=== PATIENT | female | born 1990 | race Caucasian/White ===

== ENCOUNTER 2016-10-12 19:18 | Inpatient (IN) ==
[2016-10-12] MEDS ORDERED: TYLENOL PO ONE (19:28)
[2016-10-12] MEDS ORDERED: TYLENOL ONE (19:29)
--- NOTE | 2016-10-12 20:22 | PROVIDER DOCUMENTATION ---
HPI-General Adult - General Chief Complaint: Flu Symptoms Stated Complaint: FEVER/CHEST PAIN/CONGESTION Time Seen by Provider: 10/12/16 20:19 Source: patient Allergies/Adverse Reactions: Patient Allergies Allergy/AdvReac Type Severity Reaction Status Date / Time carbamazepine [From Tegretol] Allergy HIVES Verified 10/04/15 01:36 Home Medications: Home Medication List Medication Instructions Recorded Confirmed Last Taken Type Levetiracetam [Keppra] 1,000 mg PO BID #60 tablet 01/12/16 Unknown Rx - History of Present Illness -Gen Adult Nature of Presenting Problems: 26 Y/O F presents to ED with Flu like symptoms. Pt states that she was sick for about a week and was at her aunt house the entire week while sick. Pt states that she's a smoker and hasn't smoked within a week. States ran out of anxiety meds and seizure med while at aunts house. Twitching, and states coughing with pressure in chest, States D/N. States hasn't ate in a week. Location of Pain/Injury: reports: generalized Pain Radiation: reports: no radiation Quality of Pain: reports: pressure, other (tingling) Severity: reports: moderate, severe Onset/Duration: reports: last week Timing: reports: still present Context/Activities at Onset: reports: none Associated Symptoms: reports: cough, diarrhea, loss of appetite, nausea. denies : fatigue, fever/chills, headaches, vomiting Similar Symptoms Previously?: No Recently seen or treated by another doctor?: No Review of Systems - Adult - REVIEW OF SYSTEMS - ADULT Constitutional: reports: fever. denies: chills Eyes: reports: no symptoms reported Ears, Nose, Mouth & Throat: reports: no symptoms reported Cardiovascular: denies: chest pain Respiratory: reports: cough, shortness of breath Gastrointestinal: reports: abdominal pain, diarrhea, poor appetite. denies: vomiting Genitourinary: reports: no symptoms reported Musculoskeletal: reports: no symptoms reported Integumentary: reports: no symptoms reported Neurological: reports: no symptoms reported Psychiatric: reports: anxiety Endocrine: reports: no symptoms reported Hematologic/Lymphatic: reports: no symptoms reported Allergic/Immunologic: reports: no symptoms reported All Other Systems: Reviewed and Negative Past History - Adult - PAST MEDICAL HISTORY-ADULT Review of Records: reports: Old Records Reviewed, Nursing Assessment Review, Medications Reviewed, Social history reviewed & non-contributory. Major Childhood Illnesses: reports: denies history Cardiovascular: reports: denies history Respiratory: reports: denies history Gastrointestinal: reports: denies history Obstetrical/Gynecological: reports: denies history Genitourinary: reports: denies history Musculoskeletal: reports: denies history Neurological: reports: denies history Psychiatric: reports: depression Endocrine/Immune: reports: denies history Other Conditions: reports: denies history - PRIOR SURGERIES/PROCEDURES Surgical/Procedure History: reports: other (laproscopic) - IMMUNIZATION STATUS Childhood Immunizations: See Nurse Assessment Flu Vaccine: See Nurse Assessment - FAMILY HISTORY Family History: reviewed, not pertinent - SOCIAL HISTORY Smoking: cigarettes Substance Use: none/never Physical Exam-General - PHYSICAL EXAM-ADULT Initial Vital Signs Reviewed: Yes - CONSTITUTIONAL General Appearance: alert, no apparent distress. negative: appears well - EYES Eyes: PERRL/EOMI, pink conjunctivae, fundi clear, no AV nicking - HEAD, EARS, NOSE, MOUTH & THROAT HENMT: normocephalic/atraumatic, moist mucous membranes, normal ENT inspection, TMs normal, pharynx normal - NECK Neck: non-tender, full range of motion, supple, normal inspection - RESPIRATORY Respiratory: chest non-tender, normal breath sounds, rhonchi - CARDIOVASCULAR Cardiovascular: normal peripheral pulses, regular rate, rhythm - GASTROINTESTINAL (ABDOMEN) Abdominal Exam: normal bowel sounds, tenderness - LYMPHATIC Lymphatic: no adenopathy - MUSCULOSKELETAL Back Exam: normal inspection, no CVA tenderness, no vertebral tenderness Extremity: normal range of motion, non-tender, normal gait - SKIN Integumentary: normal turgor - 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 - PSYCHIATRIC Psych/Mental Status: normal thought content, normal thought process, oriented x 3, anxious Progress - PLAN OF CARE/RESULTS Progress/Plan/Lab Results: Laboratory Tests 10/12/16 10/12/16 10/12/16 19:30 20:33 20:33 WBC 9.83 RBC 4.73 Hgb 12.9 Hct 37.4 MCV 79.1 L MCH 27.3 MCHC 34.5 RDW Std Deviation 13.6 Plt Count 387 MPV 10.0 Immature Gran % (Auto) 1.4 H Neut % (Auto) 77.4 H Lymph % (Auto) 10.4 L Bracken % (Auto) 10.4 H Eos % (Auto) 0.3 Baso % (Auto) 0.1 Immature Gran # (Auto) 0.14 H Neut # (Auto) 7.61 H Lymph # (Auto) 1.02 L Bracken # (Auto) 1.02 H Eos # (Auto) 0.03 Baso # (Auto) 0.01 Sodium 126 L Potassium 2.8 L Chloride 86 L Carbon Dioxide 25 Anion Gap 15 BUN 5 L Creatinine 0.5 Estimated GFR/1.73 m2 > 60 BUN/Creatinine Ratio 10 Glucose 118 H Calculated Osmolality 252 Calcium 8.7 L Total Bilirubin 0.70 AST 24 ALT 14 Alkaline Phosphatase 60 Total Protein 7.2 Albumin 2.8 L Globulin 4.0 Albumin/Globulin Ratio 1.0 Influenza A (Rapid) NEGATIVE Influenza B (Rapid) NEGATIVE Orders Category Date Time Status Admit - [facility] Routine AdmDCTranf 10/12/16 22:03 Ordered Activity - Up Ad Kathia ORDERED Care 10/12/16 22:07 Active Elevate Head of Bed DIRECTED Care 10/12/16 22:07 Active Encourage Fluids DIRECTED Care 10/12/16 22:07 Active Intake and Output-Strict Q 8-HR ASSESS Care 10/12/16 22:07 Active Nursing- Assist w/ IS as order ORDERED Care 10/12/16 22:08 Active Vital Signs Order Q 8-HR ASSESS Care 10/12/16 22:07 Active Heart Healthy Diet Diet 10/12/16 22:08 Active CHEST-2 VIEWS [RAD] Stat Exams 10/12/16 20:23 Taken BLOOD CULTURE [BLDCUL] Stat Lab 10/12/16 21:22 Ordered CBC WITH DIFF [HEME] Stat Lab 10/12/16 20:33 Completed CMP [COMPREHENSIVE METABOLIC PANEL] [CHEM] Stat Lab 10/12/16 20:33 Completed Flu [INFLUENZA SCREEN PL] Stat Lab 10/12/16 19:30 Completed 0.9% Sodium Chloride Inj [Ns] 1,000 ml Med 10/12/16 22:15 Active IV 150 mls/hr Acetaminophen [Tylenol] Med 10/12/16 19:29 Discontinued 1,000 mg .ROUTE .STK-MED ONE Acetaminophen [Tylenol] Med 10/12/16 19:28 Discontinued 1,000 mg PO NOW ONE CefTRIAXONE 1 GM/NS [Rocephin 1 gm/Ns] 50 ml Med 10/12/16 21:24 Discontinued IV STAT Doxycycline 100 mg Med 10/12/16 22:15 Active 0.9% Sodium Chloride Inj [Ns] 250 ml IV Q12H Levetiracetam [Keppra] Med 10/12/16 22:01 Discontinued 1,000 mg .ROUTE .STK-MED ONE Levetiracetam [Keppra] Med 10/13/16 09:00 Active 1,000 mg PO BID Levetiracetam [Keppra] Med 10/12/16 21:22 Discontinued 1,000 mg PO NOW ONE Quetiapine [Seroquel] Med 10/12/16 21:23 Discontinued 200 mg PO NOW ONE Aerosol Treatments RTQ6H.NV Ot 10/13/16 10:00 Active Aerosol Treatments RTQ6H.NV Ot 10/13/16 16:00 Active Aerosol Treatments RTQ6H.NV Ot 10/13/16 22:00 Active Incentive Spirometer Routine Ot 10/12/16 22:07 Active Oxygen Device Routine Ot 10/12/16 22:07 Active Pulse Oximetry Routine Oth 10/12/16 22:07 Active Telemetry [OM.EQ] Routine Oth 10/12/16 22:03 Active Transfer/Admit Order [TRANSFER] Routine Transfer 10/12/16 22:10 Ordered Vital Signs - 24 hr 10/12/16 10/12/16 10/12/16 19:24 21:18 22:06 Temperature 101 F H 97.9 F 98.9 F Pulse Rate 110 H 74 78 Respiratory 22 18 18 Rate Blood Pressure 108/71 123/78 O2 Sat by Pulse 97 91 L 93 L Oximetry - XRAY 1 XRAY Study: Chest Impression: Abnormal XRAY Interpretation: pneumonia - CONSULTS/PCP/HOSPITALIST Notification #1 *Consult/PCP/Hospitalist*: Time Discussed: 22:20 Reason/Comments: Admittance Consult Disposition: Admit (Admit Accepted) Departure - Departure Time of Disposition Order: 22:21 DIAGNOSIS: Anxiety Pneumonia involving right lung Qualifiers: Pneumonia type: due to unspecified organism Lung location: middle lobe of lung Qualified Code(s): J18.1 - Lobar pneumonia, unspecified organism Disposition: ADMITTED INPATIENT 09 Certified Medical Emergency: Emergent Condition: Stable Additional Instructions: ED Follow Up Instructions: You have been treated by a care provider in the Emergency Department. These instructions are being provided to you so you can have an understanding of how to care for yourself upon discharge. Upon discharge from the Emergency Department, you are responsible for making arrangements for follow-up care by a physician of your choice. Take all prescribed medications as directed. Return to the Emergency Department immediately for any new or worsening symptoms. You may call the Physician Referral phone number at [phone] to obtain a list of Physicians who are taking new patients. Referrals: None,PCP [Primary Care Provider] - Attestation - Scribe Verification/Attestation Scribe:: Virginia Molina Acting as Scribe for:: Radhames Dover Scribe documention review:: This chart was documented by a scribe and accurately reflects the service the provider performed and the decisions made by the provider.
[2016-10-12 20:50] LABS: MANUAL DIFF NEEDED? NO
[2016-10-12 20:55] LABS: BASO% 0.1 % (0.0-0.8); EOS# 0.03 X1000 (0.0-0.7); EOS% 0.3 % (0.0-10.0); HEMATOCRIT 37.4 % (37.0-47.0); HEMOGLOBIN 12.9 g/dL (12.0-16.0); IMM GRAN# 0.14 X1000 (0.0-0.04); IMM GRAN% 1.4 % (0.0-0.5); LYMPH# 1.02 X1000 (1.2-3.4); LYMPH% 10.4 % (20.5-51.1); MCH 27.3 PG (27-31); MCHC 34.5 g/dL (33-37); MCV 79.1 FL (81-99); MONO# 1.02 X1000 (0.11-0.59); MONO% 10.4 % (1.7-9.3); NEUT% 77.4 % (42.2-75.2); PLT 387 X1000 (130-400); RBC 4.73 XMIL (4.2-5.4)
[2016-10-12] MEDS ORDERED: KEPPRA PO ONE (21:22)
[2016-10-12] MEDS ORDERED: SEROQUEL PO ONE (21:23)
[2016-10-12 21:24] LABS: AGAP 15; ALBUMIN 2.8 g/dL (3.5-5.0); ALKALINE PHOSPHATASE 60 U/L (32-104); BUN 5 mg/dL (8-22); CALCIUM 8.7 mg/dL (8.8-10.2); CHLORIDE 86 mmol/L (98-107); COSMO 252; GOT 24 U/L (10-30); GPT 14 U/L (10-36); POTASSIUM 2.8 mmol/L (3.5-5.1); SODIUM 126 mmol/L (136-145); TCO2 25 mmol/L (25-35); TOTAL PROTEIN 7.2 g/dL (6.3-8.3)
[2016-10-12] MEDS ORDERED: ROCEPHIN 1 GM/NS 50 ML IV STA (21:24)
[2016-10-12] MEDS ORDERED: KEPPRA ONE (22:01)
[2016-10-12] MEDS ORDERED: NS 1,000 ML IV SCH (22:15)
[2016-10-12] MEDS ORDERED: DOXYCYCLINE ONE (23:06)
[2016-10-12] MEDS ORDERED: NS 250 ML ONE (23:06)
[2016-10-12] MEDS: DOXYCYCLINE 100 MG in NS 250 ML IV SCH (23:16)
[2016-10-13] MEDS ORDERED: DUONEB (A & A) INH PRN (00:08)
[2016-10-13] MEDS ORDERED: KLONOPIN PO ONE (00:21)
[2016-10-13] MEDS ORDERED: NS 1,000 ML IV ONE (00:23)
[2016-10-13] MEDS ORDERED: NICODERM PATCH TD PRN (00:25)
[2016-10-13] MEDS ORDERED: NS + KCL 40 MEQ 1,000 ML IV SCH (00:30)
[2016-10-13] MEDS: DUONEB (A & A) INH SCH ×5 (04:03→19:45)
--- NOTE | 2016-10-13 05:52 | HISTORY AND PHYSICAL ---
CHIEF COMPLAINT: Shortness of breath. HISTORY OF PRESENT ILLNESS: A 26-year-old female with no significant history except for tobacco abuse. She has had flu-like symptoms for about 7 days. She just has not felt well. She smokes but she has not smoked or eaten very well for the last 1-2 days. She also is out of her anxiety and seizure medications. She came up with coughing issues. The patient was admitted because she has a large right lower lobe pneumonia and is fairly symptomatic. PAST MEDICAL HISTORY: Seizure disorder, possible bipolar disorder. No asthma or COPD. PAST SURGICAL HISTORY: She has had an oophorectomy laparoscopic for a cyst. SOCIAL HISTORY: She is a pack-a-day smoker. She has done that for about 10 years. She denies alcohol. She denies any drugs of abuse. ALLERGIES: Carbamazepine. FAMILY HISTORY: Reviewed noncontributory. MEDICATIONS: She reportedly is on Keppra and Seroquel. In any case, patient came in for evaluation. Workup in the ER revealed a right lower lobe pneumonia, and she was admitted for treatment. REVIEW OF SYSTEMS: Otherwise negative. PHYSICAL EXAMINATION: VITAL SIGNS: Blood pressure is 114/50, heart rate of 84, respiratory rate 18, temperature 99.3 degrees, 93% on room air nasal cannula. She was 91 on room air. She came in with a temperature of a 101 degrees. GENERAL: A well-developed female. She appears in mild distress. Just very tremulous. Just ill appearing overall. HEENT: Pupils equal, round, reactive to light. Extraocular movements were intact. She has tacky oral mucosa, just very dry. NECK: Supple. CARDIOVASCULAR: Regular rate. She had an abnormal S2 sound and PULMONARY: She had just a lot of rhonchi on pulmonary exam with no wheezing, but just diffuse rhonchi, some rales at the bases. GI: Soft, nontender, nondistended. Bowel sounds were positive. EXTREMITIES: No clubbing or cyanosis. LYMPHATICS: No peripheral edema. NEUROLOGICAL: Nonfocal. DIAGNOSTIC DATA: No white count. Chemistries show sodium is 126. Her potassium is 2.8. The rest of her studies are unremarkable. Her chest x-ray again showed a large right lower lobe infiltrate with air bronchograms consistent with pneumonia. ASSESSMENT: This is a 26-year-old female presenting with shortness of breath, cough and a right lower lobe pneumonia. She is ill appearing with positive systemic inflammatory response syndrome criteria, so I feel she has some early degree of sepsis. 1. Right lower lobe pneumonia. Sepsis. We will continue empiric antibiotics. She has been placed on doxycycline and Rocephin. So, we will continue those medications. She has a significant pneumonia. I am going to go ahead and progress with a CT scan to better evaluate her. She may even indeed need a pulmonary evaluation if she is not improved. We will continue pulmonary toilet with incentive spirometry, acapella, Mucomyst, Mucinex, and follow clinically. 2. Hypokalemia. We will supplement and follow magnesium levels. 3. Hyponatremia, likely related to possible medications versus dehydration. We will check urine electrolytes and monitor her kidney function. May be related to her psychiatric medications. I am going to screen her for any drugs of abuse. She is fairly young to have such an overwhelming amount of pneumonia, unless there is some surreptitious drug use. 4. Tobacco abuse. Counseled on cessation. Will given a NicoDerm patch and follow. DISPOSITION: Pending her clinical course. This is a service admission.
[2016-10-13] MEDS: LOVENOX SUBQ SCH (05:55)
[2016-10-13] MEDS: NORCO-7.5 PO PRN ×3 (05:57→17:47)
[2016-10-13] MEDS ORDERED: PNEUMOVAX 23 IM ONE (06:24)
[2016-10-13 06:55] LABS: HEMATOCRIT 33.7 % (37.0-47.0); HEMOGLOBIN 11.5 g/dL (12.0-16.0); MCH 27.5 PG (27-31); MCHC 34.1 g/dL (33-37); MCV 80.6 FL (81-99); MPV 10.9 FL (7.4-10.4); RBC 4.18 XMIL (4.2-5.4)
[2016-10-13 07:01] LABS: UR AMPHETAMINES QUAL NONE DETECTED (NONE DETECT); UR BARBITUATES QUAL NONE DETECTED (NONE DETECT); UR BENZODIAZEPIN QUAL NONE DETECTED (NONE DETECT); UR CANNABINOIDS QUAL PRESUMPTIVE POSITIVE (NONE DETECT); UR COCAINE QUAL NONE DETECTED (NONE DETECT); UR MDMA QUAL NONE DETECTED (NONE DETECT); UR METHADONE QUAL NONE DETECTED (NONE DETECT); UR METHAMPHETAMINE QUAL NONE DETECTED (NONE DETECT); UR OPIATES QUAL PRESUMPTIVE POSITIVE (NONE DETECT); UR OXYCODONE QUAL NONE DETECTED (NONE DETECT); UR PCP QUAL NONE DETECTED (NONE DETECT); UR TCA QUAL NONE DETECTED (NONE DETECT)
[2016-10-13 07:16] LABS: AGAP 11; BUN 7 mg/dL (8-22); CALCIUM 8.1 mg/dL (8.8-10.2); CHLORIDE 97 mmol/L (98-107); COSMO 269; POTASSIUM 2.6 mmol/L (3.5-5.1); SODIUM 135 mmol/L (136-145); TCO2 26 mmol/L (25-35)
[2016-10-13] MEDS ORDERED: MUCOMYST 20% INH SCH (07:30)
[2016-10-13] MEDS ORDERED: KLOR-CON PO ONE (08:11)
--- NOTE | 2016-10-13 08:11 | Diag Imaging Result Document ---
PROCEDURE NAME: CHEST-2 VIEWS - 10/12/2016 FRONTAL AND LATERAL CHEST, TWO VIEWS: FINDINGS: There is a dense right lower lobe infiltrate. There is likely involvement of the right middle lobe as well. Questionable small infiltrate in the left lower lobe behind the heart. The upper lungs are clear. The heart is not enlarged. The vessels are not distended. IMPRESSION: Right sided pneumonia.
[2016-10-13] MEDS: NS 1,000 ML IV SCH ×2 (08:47→22:51)
[2016-10-13] MEDS: POTASSIUM CHLORIDE 20 MEQ/SWI 100 ML IV SCH ×2 (08:56→13:37)
[2016-10-13] MEDS: KLONOPIN PO PRN ×2 (08:57→17:48)
[2016-10-13] MEDS: KEPPRA PO SCH ×2 (08:58→21:01)
[2016-10-13] MEDS: MUCINEX PO SCH ×2 (08:58→21:01)
--- NOTE | 2016-10-13 09:33 | PROGRESS NOTE ---
DATE: 10/13/2016 SUBJECTIVE: Patient states she is feeling a little bit better. She is still having significant cough and congestion. Denies any true chest pains or palpitations. PHYSICAL EXAMINATION: Vital Signs: Temperature current is 98.6, T-max was 101 degrees yesterday afternoon. Pulse of 70, respiratory rate of 20, BP 1264/62. Saturating 94% on room air. General: The patient is well developed female who currently is in mild respiratory distress. She is awake, alert, and oriented. Neck: Supple. CV: Regular rate. Chest: Relatively clear with rhonchi throughout. No apparent wheezing. Abdomen: Soft. Extremities: Moves all extremities. Neurologic: No changes. Skin: Warm and dry. No rashes. ASSESSMENT: 1. Hypokalemia. Potassium 2.6. We will replace intravenously. 2. Hypocalcemia. We will replace orally. 3. Right lower lobe pneumonia. 4. Systemic inflammatory response syndrome. 5. Hyponatremia, resolved. 6. Chronic tobacco abuse. Again, discussed with the patient the perils of smoking. 7. Abnormal urine drug screen. Patient has a urine drug screen positive for opiates and cannabinoids. This certainly could have increased the likelihood of her having an aspiration type pneumonia. PLAN: She currently is on Rocephin and doxycycline. We will check a CT scan. We will continue to follow. Hopefully home in 1-2 days.
--- NOTE | 2016-10-13 11:01 | Diag Imaging Result Document ---
PROCEDURE NAME: CT THORAX W/CONTRAST - 10/13/2016 CT CHEST WITH INTRAVENOUS CONTRAST, 10/13/2016: A CT dose reduction protocol was used. COMPARISON: CT chest 10/12/2016. FINDINGS: There is dense consolidation of the majority of the right lower lobe. This contains numerous small air cavities containing air-fluid levels, measuring up to about 3.3 cm. These are compatible with small intrapulmonary abscesses. These are mostly in the retro hilar space, at the level of the right main pulmonary artery and pulmonary veins. There is some trace infiltrate in the right middle lobe. There is also an area of consolidation in the retrocardiac left lower lobe. There is only minimal infiltrate in the left upper lobe. There are some reactive appearing, enlarged right hilar and mediastinal lymph nodes. Spleen size is top normal. Heart and great vessels are normal. Bony structures are intact. IMPRESSION: Multilobar bilateral pneumonia. The right lower lobe consolidation is the most extensive, and appears to contain numerous small intrapulmonary abscesses. [facility]
[2016-10-13] MEDS: DOXYCYCLINE 100 MG in NS 250 ML IV SCH (13:02)
[2016-10-13] MEDS ORDERED: TYLENOL PO PRN (13:06)
[2016-10-13] MEDS ORDERED: NS 250 ML ONE (13:22)
[2016-10-13] MEDS ORDERED: VANCOMYCIN IV PER PHARMACY MISC SCH (14:00)
[2016-10-13] MEDS ORDERED: ZOSYN 3.375 GM/NS 50 ML IV SCH (14:00)
[2016-10-13] MEDS ORDERED: VANCOMYCIN 2,200 MG in NS 500 ML IV ONE (15:00)
[2016-10-13] MEDS: ZOSYN 4.5 GM/NS 100 ML IV SCH ×2 (16:50→21:03)
[2016-10-13] MEDS ORDERED: ZOFRAN IV PRN (16:55)
[2016-10-13] MEDS: MUCOMYST 20% INH SCH (19:46)
[2016-10-13] MEDS ORDERED: ROCEPHIN 1 GM/NS 50 ML IV SCH (21:00)
[2016-10-13] MEDS ORDERED: SEROQUEL PO ONE (21:27)
[2016-10-14] MEDS: KLONOPIN PO PRN ×4 (00:36→20:27)
[2016-10-14] MEDS: NORCO-7.5 PO PRN ×4 (00:36→20:27)
[2016-10-14] MEDS: DUONEB (A & A) INH SCH ×7 (03:45→23:42)
[2016-10-14] MEDS: ZOSYN 4.5 GM/NS 100 ML IV SCH ×4 (04:03→20:28)
[2016-10-14] MEDS: VANCOMYCIN 1,650 MG in NS 250 ML IV SCH ×2 (04:46→14:36)
[2016-10-14 05:37] LABS: HEMATOCRIT 30.5 % (37.0-47.0); HEMOGLOBIN 10.2 g/dL (12.0-16.0); MCH 27.2 PG (27-31); MCHC 33.4 g/dL (33-37); MCV 81.3 FL (81-99); MPV 10.4 FL (7.4-10.4); RBC 3.75 XMIL (4.2-5.4)
[2016-10-14] MEDS: LOVENOX SUBQ SCH (05:52)
[2016-10-14 05:59] LABS: AGAP 12; ALBUMIN 1.9 g/dL (3.5-5.0); ALKALINE PHOSPHATASE 54 U/L (32-104); BUN 4 mg/dL (8-22); CALCIUM 7.3 mg/dL (8.8-10.2); CHLORIDE 103 mmol/L (98-107); COSMO 268; GOT 17 U/L (10-30); GPT 13 U/L (10-36); POTASSIUM 3.3 mmol/L (3.5-5.1); SODIUM 136 mmol/L (136-145); TCO2 21 mmol/L (25-35); TOTAL PROTEIN 5.2 g/dL (6.3-8.3)
[2016-10-14] MEDS: MUCOMYST 20% INH SCH ×2 (08:00→20:07)
[2016-10-14] MEDS ORDERED: KLOR-CON PO ONE (08:02)
[2016-10-14] MEDS: KEPPRA PO SCH ×2 (08:05→20:26)
[2016-10-14] MEDS: NS 1,000 ML IV SCH (08:05)
[2016-10-14] MEDS: MUCINEX PO SCH ×2 (08:05→20:26)
--- NOTE | 2016-10-14 08:31 | PROGRESS NOTE ---
DATE: 10/14/2016 SUBJECTIVE: Patient is still having significant cough. Denies any true fevers yesterday. However, she did have a T-max of 102.8 degrees this morning. Denies any chest pain or palpitations. PHYSICAL EXAMINATION: Vital Signs: Temperature current 98.6, T-max 102.8 degrees at 6:30 this a.m., pulse 86, respiratory rate 20, BP 129/69, saturation 100% on room air. General: The patient is a well-developed female who unfortunately has a significant fever this morning. She continues to have a cough. She denies any production to the cough. States she has not been out of bed. She is still having some shortness of breath but overall feeling better. Patient denies any chest pains or palpitations currently. Abdomen: Soft, nondistended. Extremities: Moves all extremities. Neurologic: No changes. ASSESSMENT: 1. Multilobar pneumonia with more extensive consolidation of the right lower lobe, with most likely small intrapulmonary abscesses. 2. Hypokalemia. Potassium is continuing to improve. We will continue to replace orally. 3. Hyponatremia, resolved. 4. Chronic tobacco abuse. 5. Chronic drug usage. PLAN: We will continue the patient in the hospital on IV antibiotics. Certainly can stop her telemetry at this point. Echocardiogram is currently pending. She certainly may need a RUBINA as well, given her known history of IV drug use and her current significant pneumonia. Multiple labs are still pending including HIV, hepatitis, Legionella. We will continue to follow. Continue her on vancomycin and Zosyn. We will decrease her IV fluids down to saline lock and follow.
[2016-10-14] MEDS ORDERED: FLUZONE QUAD 2016-2017 SYRINGE IM ONE (09:00)
[2016-10-14 10:27] LABS: HIV ANTIBODY SCREEN SEE COMMENTS (())
[2016-10-14 13:00] LABS: HEPATITIS PROFILE ACUTE SEE COMMENTS (())
--- NOTE | 2016-10-14 20:05 | ECHO REPORT ---
ORDER DATE: 10/14/2016 INTERPRETING PHYSICIAN: Dr. Rebollar CLINICAL INDICATIONS: Shortness of breath, pneumonia, 26-year-old female. M-MODE MEASUREMENTS: Right ventricle: 2.7 cm. Left ventricle end diastole: 4.2 cm. Left ventricle end systole: 2.8 cm. Posterior wall: 0.7 cm. Interventricular septum: 0.7 cm. Left atrium: 3.2 cm. Aortic root: 2.9 cm. SUMMARY OF 2-DIMENSIONAL IMAGING: Left ventricular function appears to be normal. Ejection fraction estimated at 66%. The right ventricle appears to be at the upper limits of normal to borderline enlarged. Inferior vena cava is not dilated. The tricuspid valve shows mild degree of regurgitation. The pulmonary pressure is estimated at 32 mmHg. Pulmonic valve looks normal. Color flow mapping unremarkable. Mitral valve looks normal. Color flow mapping unremarkable. The aortic valve looks normal. Color flow mapping also unremarkable. There is no evidence of any stenosis or regurgitation. The pulse wave Doppler of mitral inflow is normal. Tissue Doppler of septal and lateral mitral anulus averages 15 cm. There is no diastolic dysfunction. Pulmonic valve looks grossly normal. There is no pericardial effusion, masses, or thrombus. The pulse wave Doppler of pulmonary venous flow is also normal. The interatrial septum is bowing from the left atrium into the right atrium. I do not see evidence of shunt. SUMMARY: This study shows: 1. Normal left ventricular systolic function. 2. No diastolic dysfunction. 3. No evidence of any significant valvular abnormality. 4. Pulmonary systolic pressure estimated at 32 mmHg. 5. Interatrial septum bowing into the right atrium. That may be a normal variant. No evidence of shunt was noted. 6. Clinical correlation recommended.
[2016-10-14] MEDS ORDERED: SEROQUEL PO ONE (21:53)
[2016-10-15] MEDS: ZOSYN 4.5 GM/NS 100 ML IV SCH ×4 (03:02→22:52)
[2016-10-15] MEDS: VANCOMYCIN 1,650 MG in NS 250 ML IV SCH ×2 (04:00→16:14)
[2016-10-15] MEDS: DUONEB (A & A) INH SCH ×6 (04:56→22:59)
[2016-10-15] MEDS: NORCO-7.5 PO PRN ×4 (05:09→22:50)
[2016-10-15] MEDS: KLONOPIN PO PRN ×4 (05:09→22:51)
[2016-10-15] MEDS: LOVENOX SUBQ SCH (05:14)
[2016-10-15] MEDS: MUCOMYST 20% INH SCH ×2 (07:46→20:20)
--- NOTE | 2016-10-15 08:22 | PROGRESS NOTE ---
DATE: 10/15/2016 SUBJECTIVE: Patient without any new complaints this morning. States that she is starting to get out of bed. Denies any chest pain or palpitations. Denies any GI or issues. OBJECTIVE: Vital Signs: Reviewed. Temperature 98 degrees, pulse 86, respiratory rate 18, BP 124/67. General: Patient is a well developed, well nourished female who currently is in no respiratory distress. She is awake, alert. Neck: Supple. CV: Regular rate. Chest: Relatively clear. ASSESSMENT: 1. Pneumonia. Sputum culture still pending. CT on the demonstrated multilobar pneumonia with questionable intrapulmonary abscesses. We will consult Dr. Leal with infectious disease for opinion on antibiotic choice. 2. Hepatitis C. This is a new result. Discussed this with Ms. Aguero and the fact that she will need to follow up outpatient with gastroenterology to discuss possible treatment options. However, her medical and drug noncompliance certainly could decrease her ability to be treated. Patient understands. 3. Bipolar. Continue Keppra and Seroquel. 4. Intentional medical noncompliance. 5. Intentional drug use and abuse. 6. Hypokalemia, continues to improve. 7. Hypocalcemia. We will recheck. 8. Moderate protein calorie malnutrition. We will continue to encourage oral. We will recheck labs in the morning. 9. Chronic tobacco abuse. Again, discussed with patient the perils of smoking.
[2016-10-15] MEDS: NS 1,000 ML IV SCH (08:23)
[2016-10-15] MEDS: MUCINEX PO SCH ×2 (08:23→22:51)
[2016-10-15] MEDS: KEPPRA PO SCH ×2 (08:23→22:50)
[2016-10-15] MEDS ORDERED: VANCOMYCIN 1,800 MG in NS 250 ML IV SCH (18:02)
[2016-10-15] MEDS: SEROQUEL PO SCH (22:50)
[2016-10-16] MEDS: ZOSYN 4.5 GM/NS 100 ML IV SCH ×3 (03:22→15:35)
[2016-10-16] MEDS: DUONEB (A & A) INH SCH ×5 (04:21→19:47)
[2016-10-16] MEDS: NORCO-7.5 PO PRN ×4 (04:54→23:13)
[2016-10-16] MEDS: KLONOPIN PO PRN ×4 (04:55→23:13)
[2016-10-16] MEDS: VANCOMYCIN 1,800 MG in NS 250 ML IV SCH ×2 (04:55→17:20)
[2016-10-16] MEDS: LOVENOX SUBQ SCH (05:01)
[2016-10-16 06:25] LABS: HEMATOCRIT 29.7 % (37.0-47.0); HEMOGLOBIN 9.8 g/dL (12.0-16.0); MCH 27.2 PG (27-31); MCV 82.5 FL (81-99); MPV 10.1 FL (7.4-10.4); RBC 3.6 XMIL (4.2-5.4)
[2016-10-16 06:38] LABS: AGAP 13; ALKALINE PHOSPHATASE 50 U/L (32-104); BUN 7 mg/dL (8-22); CALCIUM 7.9 mg/dL (8.8-10.2); CHLORIDE 104 mmol/L (98-107); COSMO 275; GOT 14 U/L (10-30); GPT 10 U/L (10-36); MAGNESIUM 1.9 mg/dL (1.5-2.7); POTASSIUM 3.4 mmol/L (3.5-5.1); SODIUM 139 mmol/L (136-145); TCO2 22 mmol/L (25-35); TOTAL PROTEIN 5.6 g/dL (6.3-8.3)
[2016-10-16] MEDS: MUCOMYST 20% INH SCH ×2 (07:40→19:47)
[2016-10-16] MEDS: MUCINEX PO SCH ×2 (09:34→20:52)
[2016-10-16] MEDS: KEPPRA PO SCH ×2 (09:34→20:52)
--- NOTE | 2016-10-16 09:54 | PROGRESS NOTE ---
DATE: 10/16/2016 SUBJECTIVE: Patient without any new complaints today. OBJECTIVE: Vital Signs: Temperature 97 degrees, pulse 60, respiratory 20, BP 135/85. General: Patient is a well-developed female who currently is in no respiratory distress. She is awake, alert. Neck: Supple. CV: Regular rate. Chest: Relatively clear. Abdomen: Soft. LABS: Sputum culture shows methicillin-resistant staphylococcus, sensitive to tetracycline, Bactrim and clindamycin. ASSESSMENT: 1. Anemia of chronic disease, stable. 2. Hypokalemia, stable. 3. Methicillin-resistant Staphylococcus aureus in sputum. 4. Moderate protein calorie malnutrition. 5. Chronic drug abuse. 6. Right lower lobe pneumonia secondary to methicillin-resistant staphylococcus. 7. Sepsis, resolved. PLAN: We will add vancomycin given her recent sputum results. We will ask Dr. Leal with Infectious Disease to evaluate for length of antibiotics.
[2016-10-16] MEDS: NS 1,000 ML IV SCH (11:08)
[2016-10-16 13:10] LABS: HCV BY PCR SEE COMMENTS (()); HCV CHARGE YES
--- NOTE | 2016-10-16 20:05 | CONSULTATION ---
DATE OF CONSULTATION: 10/16/2016 CONCLUSION: The patient has methicillin-resistant Staph aureus pneumonia. Her blood cultures were negative thus she does not have bacteremia fortunately. An echocardiogram did not show vegetations and since the blood cultures are also negative I doubt she has endocarditis. The patient does have a history of IV drug abuse. She started having diarrhea in the last 2 days and I think Clostridium difficile toxin should be checked in her stool. Patient also is due to have a menstrual period. I would suggest checking a urinary test. Patient has hepatitis C. RECOMMENDATIONS: As mentioned above, I would suggest getting a urinary test. I have discontinued Zosyn and I think the patient can be treated with a single agent namely vancomycin for the patient's methicillin-resistant Staph aureus pneumonia. The patient's hepatitis C is positive and also the PCR for hepatitis C is positive. I would suggest a referral to a rug hooker I think the patient would be an excellent candidate to go to an LTAC i.e. a long-term acute care facility. As mentioned above, suggest ordering stool for C diff toxin. DISCUSSION: The patient admits to doing IV drugs. Before she came in she had a week of coughing, a yellow sputum and fever. She also was dyspneic but all of these symptoms have improved somewhat. She also was complaining of pain in her joints and muscle and again this is getting better since she has been receiving antibiotics. In the past 2 days she has had diarrhea for so I think it would be good to check a Clostridium difficile toxin. Patient's echocardiogram did not show any vegetations. Her CBC shows a white count of 5720, hemoglobin 9.8 , and platelet count 357,000. CT scan of the chest shows multilobar pneumonia. The QuantiFERON test for TB was negative. Urinary Legionella and pneumococcal test were negative. As mentioned above, the patient's sputum grew methicillin-resistant Staph aureus which in vitro was susceptible to vancomycin, clindamycin, tetracycline, Septra and gentamicin. PAST MEDICAL HISTORY/REVIEW OF SYSTEMS: Eyes and ears: She denies difficulty hearing or seeing. Neck: No stiffness. Respiratory: The patient as mentioned above did have coughing productive of yellow sputum and she did have dyspnea but all this is getting better. Cardiac: No chest pain or palpitations. GI: As mentioned above, the patient has had diarrhea in the past 2 days. She is not having nausea or vomiting. Endocrine: She does not have diabetes or thyroid disease. Hematologic: She does not have a history of anemia or bleeding tendency. Integument: She does not have rashes. The remainder the patient's review of systems was completed and was negative. 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 Her last menstrual period was approximately a month ago and she is not on any control device. PREVIOUS HOSPITALIZATION/OPERATION: She has had laparoscopic surgery to remove an ovary. MEDICAL DISEASES: Positive for seizure disorder and IV drug abuse. INFECTIOUS DISEASE HISTORY: Positive for UTI. Negative for pneumonia. FAMILY HISTORY: Positive for diabetes mellitus, hypertension, myocardial infarction and stroke. SOCIAL HISTORY: [place] She is single. She drinks alcoholic beverages. She does IV drug abuse. ALLERGIES: She is allergic to Tegretol. MEDICATIONS: At home she takes Seroquel and Keppra. She has no pets at home. PRESENT ILLNESS: The patient's creatinine is 1. The GFR is greater than 60. Liver function studies are normal. The patient's hepatitis C screen test was positive. The patient's hepatitis C antibody was positive. Patient's hepatitis C by PCR was 9829. The patient' s HIV antibody was negative. MEDICAL DISEASES: Positive for seizure disorder and IV drug abuse. INFECTIOUS DISEASE HISTORY: Positive for UTI. FAMILY HISTORY: Positive for diabetes mellitus, hypertension, myocardial infarction, and stroke. PHYSICAL EXAMINATION: Vital Signs: Temperature is 98.1 degrees, pulse 81, respirations 20, blood pressure 133/68. Patient weighs 162 pounds. General: This is an ill- appearing young female. She is in no acute distress. Head, eyes, ears, nose, and throat: No drainage noted from the nose or ears. Neck: No meningismus. Lungs: Clear to auscultation. Cardiovascular : Regular heart rate. I did not hear any murmurs. Abdomen: Soft without masses or tenderness. Neurologic: Patient is alert. She can move her extremities. There is no tremor. Her sensation is intact to touch. Her memory as regarding her medical history appeared intact. Integument : No rash is noted. Thank you for the consult. MTDD
[2016-10-16] MEDS: CULTURELLE PO SCH (20:52)
[2016-10-16] MEDS: SEROQUEL PO SCH (20:52)
[2016-10-17] MEDS: DUONEB (A & A) INH SCH ×6 (03:23→19:36)
[2016-10-17] MEDS: VANCOMYCIN 1,800 MG in NS 250 ML IV SCH (04:24)
[2016-10-17] MEDS: NORCO-7.5 PO PRN ×3 (05:24→17:43)
[2016-10-17] MEDS: KLONOPIN PO PRN ×3 (05:25→17:43)
[2016-10-17] MEDS: LOVENOX SUBQ SCH (05:25)
[2016-10-17] MEDS: MUCOMYST 20% INH SCH ×2 (07:50→19:36)
[2016-10-17] MEDS: KEPPRA PO SCH ×2 (10:32→21:53)
[2016-10-17] MEDS: MUCINEX PO SCH ×2 (10:32→21:53)
[2016-10-17] MEDS: CULTURELLE PO SCH ×2 (10:32→21:53)
--- NOTE | 2016-10-17 11:41 | PROGRESS NOTE ---
DATE: 10/17/2016 SUBJECTIVE: Patient without any new complaints. States that she is feeling okay. Denies any cough, congestion any worse than usual. OBJECTIVE: Vital Signs: On physical, temp 98, pulse 82, respiratory 18, BP 120/68, satting 96% on room air. General: Patient is well developed, well nourished. Currently in no respiratory distress. She is awake, alert. Neck: Supple. CV: Regular rate. Chest: Positive rhonchi. No wheezing. No crackles. There is good air movement bilaterally. Abdomen: Soft, nondistended. Extremities: Moves all extremities. Neurologic: No changes. Skin: Warm and dry. No rashes. LABS: No current labs today. We will recheck in the a.m. ASSESSMENT: 1. Methicillin-resistant Staphylococcus aureus in her sputum. 2. Moderate protein calorie malnutrition. 3. Hypokalemia, improving. 4. Anemia of chronic disease, stable. 5. Chronic drug abuse. This certainly presents an incredible problem as Ms Aguero needs to be on intravenous vancomycin for 4 total more weeks per infectious disease. 6. Right lower lobe pneumonia with methicillin-resistant Staphylococcus in her sputum. PLAN: Hopefully, patient will be a candidate for LTAC. Otherwise, she certainly may need to stay in the hospital for the entire 4 weeks. It is extremely problematic for Ms Aguero to be released with an IV, as she admits that she will likely use it to shoot up.
[2016-10-17] MEDS ORDERED: VANCOMYCIN 2,000 MG in NS 500 ML IV SCH (17:00)
[2016-10-17] MEDS: NS 1,000 ML IV SCH (21:53)
[2016-10-17] MEDS: VANCOMYCIN 1,600 MG in NS 250 ML IV SCH (21:53)
[2016-10-17] MEDS: SEROQUEL PO SCH (21:53)
[2016-10-18] MEDS: NORCO-7.5 PO PRN ×4 (00:53→21:41)
[2016-10-18] MEDS: KLONOPIN PO PRN ×4 (00:53→21:41)
[2016-10-18] MEDS: DUONEB (A & A) INH SCH ×6 (01:50→19:20)
[2016-10-18] MEDS: LOVENOX SUBQ SCH (06:11)
[2016-10-18 06:48] LABS: HEMATOCRIT 30.3 % (37.0-47.0); HEMOGLOBIN 9.8 g/dL (12.0-16.0); MCH 26.8 PG (27-31); MCHC 32.3 g/dL (33-37); RBC 3.65 XMIL (4.2-5.4)
[2016-10-18 07:18] LABS: AGAP 11; ALBUMIN 2.2 g/dL (3.5-5.0); ALKALINE PHOSPHATASE 55 U/L (32-104); BUN 6 mg/dL (8-22); CALCIUM 8.3 mg/dL (8.8-10.2); CHLORIDE 107 mmol/L (98-107); COSMO 278; GOT 13 U/L (10-30); GPT 8 U/L (10-36); POTASSIUM 3.4 mmol/L (3.5-5.1); SODIUM 141 mmol/L (136-145); TCO2 22 mmol/L (25-35); TOTAL PROTEIN 5.9 g/dL (6.3-8.3)
[2016-10-18] MEDS: MUCOMYST 20% INH SCH (07:48)
[2016-10-18] MEDS: CULTURELLE PO SCH ×2 (09:22→21:42)
[2016-10-18] MEDS: KEPPRA PO SCH ×2 (09:22→21:42)
[2016-10-18] MEDS: MUCINEX PO SCH ×2 (09:22→21:42)
[2016-10-18] MEDS: VANCOMYCIN 1,600 MG in NS 250 ML IV SCH ×2 (09:24→21:41)
[2016-10-18] MEDS: NS 1,000 ML IV SCH (09:24)
--- NOTE | 2016-10-18 11:28 | PROGRESS NOTE ---
DATE: 10/18/2016 SUBJECTIVE: The patient states that she is experiencing some increased anxiety. She is asking for her Klonopin dose to be increased as well as more anxiety medication added. She denies any cough or congestion. She actually states that physically, she is feeling better. OBJECTIVE: Vital Signs: Blood pressure is 135/86, heart rate of 92, respirations are 16, temperature is 97.3 degrees oral, with room air saturations of 98%. Cardiovascular: Regular rate and rhythm. S1 and S2 appreciated. Neck: Supple with trachea midline. Pulmonary: She does have rhonchi that do not clear to cough, particularly on the right side, with some scattered wheezes, with no increased work of breathing noted. Gastrointestinal: Abdomen is soft, nontender, nondistended, with bowel sounds in all 4 quadrants. Extremities: No clubbing, cyanosis, or edema. Calves are nontender. Pulses are palpable x4. Neurologic: She is alert and oriented x3. Skin: Warm and dry. Labs: WBC is 6.2, with a hemoglobin of 9.8, hematocrit 30.3, and platelets of 473,000. Sodium is 141, potassium 3.4, BUN 6, creatinine 0.8, with a glucose of 278. ASSESSMENT: 1. Methicillin-resistant Staphylococcus aureus in her sputum. 2. Moderate protein calorie malnutrition. 3. Hypokalemia, improving. 4. Anemia of chronic disease, stable. 5. Chronic drug use. 6. Right lower lobe pneumonia with methicillin-resistant Staphylococcus aureus in her sputum. 7. Hepatitis C. PLAN: We are hoping the patient will be a candidate for LTAC. We will reassess their evaluation up today. She is going to need an entire 4 weeks of IV antibiotics. This is problematic as she is an IV drug user, using heroin within 2 weeks of admission. She did state to me that if she went home within an IV, she would in fact shoot up heroin. We will continue with her current treatment. Dictated by KADEN Coombs for Royal Castillo MD
[2016-10-18] MEDS: SEROQUEL PO SCH (21:41)
[2016-10-19] MEDS: NORCO-7.5 PO PRN ×4 (04:20→23:27)
[2016-10-19] MEDS: KLONOPIN PO PRN ×4 (04:20→23:27)
[2016-10-19] MEDS: DUONEB (A & A) INH SCH ×5 (05:21→19:24)
[2016-10-19] MEDS: LOVENOX SUBQ SCH (05:48)
[2016-10-19] MEDS: NS 1,000 ML IV SCH (08:01)
[2016-10-19] MEDS: VANCOMYCIN 1,600 MG in NS 250 ML IV SCH ×2 (08:01→20:49)
--- NOTE | 2016-10-19 08:12 | PROGRESS NOTE ---
DATE: 10/19/2016 SUBJECTIVE: Patient without new complaints. She notes the increased in anxiety medicine seems to be helping better. OBJECTIVE: Vital signs: Temperature 98, pulse 74-104, respiratory 18, BP 122/60, saturating 96% on room air. General: Patient is well developed, well nourished. She is currently in no real respiratory distress. She is awake, alert. Neck: Supple. CV: Regular rate. Chest: Relatively clear. Abdomen: Soft, nondistended. Extremities: Moves all extremities. Neurologic: No focal changes. ASSESSMENT: 1. Methicillin-resistant Staphylococcus aureus pneumonia. 2. Moderate protein calorie malnutrition. 3. Chronic drug abuse. 4. Right lower lobe pneumonia. 5. Sepsis, resolved. 6. Hypokalemia, stable. 7. Moderate protein calorie malnutrition. PLAN: We will replace patient's potassium. The patient currently is day three of a 4 week vancomycin treatment. She will need vancomycin until approximately 11/17/2016. However, she is an extremely high for using her IV at home for drug use. This is per the patient's on words. We will ask social work assistant to continue to assist and help find placement, hopefully at an LTAC.
[2016-10-19] MEDS: CULTURELLE PO SCH ×2 (10:36→20:48)
[2016-10-19] MEDS: KEPPRA PO SCH ×2 (10:36→20:40)
[2016-10-19] MEDS: MUCINEX PO SCH ×2 (10:36→20:48)
[2016-10-19] MEDS: KLOR-CON PO SCH (10:38)
[2016-10-19] MEDS: SEROQUEL PO SCH (20:49)
[2016-10-20] MEDS: DUONEB (A & A) INH SCH ×6 (02:32→19:16)
[2016-10-20] MEDS: NORCO-7.5 PO PRN ×3 (06:07→18:06)
[2016-10-20] MEDS: LOVENOX SUBQ SCH (06:07)
[2016-10-20] MEDS: KLONOPIN PO PRN ×3 (06:08→18:06)
--- NOTE | 2016-10-20 08:35 | PROGRESS NOTE ---
DATE: 10/20/2016 SUBJECTIVE: Patient is without new complaints of cough and congestion. In fact, states that her breathing is actually getting better. States she has not been able to sleep well. PHYSICAL EXAMINATION: Vital Signs: Reviewed. Temperature 98 degrees, pulse 85, respiratory 18, blood pressure 135/84. General: Patient is well developed and well nourished. She is currently in no real respiratory distress. She is awake, alert. Neck: Supple. Cardiovascular: Regular rate. Chest: Relatively clear. Abdomen: Soft. Extremities: Moves all extremities. Neurologic: No changes. Skin: Warm and dry. No rashes. ASSESSMENT: 1. Methicillin-resistant Staphylococcus aureus pneumonia. 2. Sepsis, resolved. 3. Chronic drug abuse. 4. Anemia of chronic disease. 5. Bipolar. 6. Chronic anxiety. 7. Insomnia. 8. Hypokalemia. PLAN: We will recheck laboratories in the a.m. We will continue her on IV vancomycin until 11/18/2016. Unfortunately, as noted previously, patient has a significant drug use history. She admits that it would be somewhat dangerous for her to go home with an IV, as she is highly likely to use this IV for drug use. Currently, we are looking into LTAC or some type of snf situation. We will add trazodone to see if this will help her sleep. Discussed with patient that she needs to be up and moving around, and that also will help her sleep.
[2016-10-20] MEDS: NS 1,000 ML IV SCH (09:42)
[2016-10-20] MEDS: CULTURELLE PO SCH ×2 (09:44→21:17)
[2016-10-20] MEDS: MUCINEX PO SCH ×2 (09:44→21:17)
[2016-10-20] MEDS: KEPPRA PO SCH ×2 (09:44→21:17)
[2016-10-20] MEDS: KLOR-CON PO SCH (09:44)
[2016-10-20] MEDS: SEROQUEL PO SCH (21:18)
[2016-10-21] MEDS: DUONEB (A & A) INH SCH ×6 (00:28→19:56)
[2016-10-21] MEDS: NORCO-7.5 PO PRN ×3 (00:41→18:05)
[2016-10-21] MEDS: KLONOPIN PO PRN ×3 (00:41→18:06)
--- NOTE | 2016-10-21 08:25 | PROGRESS NOTE ---
DATE: 10/21/2016 SUBJECTIVE: Patient without any complaints. She is still having issues with anxiety but this is normal for her. Still having issues with insomnia. Again, this is also normal for her. OBJECTIVE: Vital Signs: Reviewed and stable. General: She is awake and alert. Neck: Supple. CV: Regular rate. Chest: Relatively clear. Occasional rhonchi. No wheezing. Good air movement bilaterally. Abdomen: Soft. Extremities: Moves all extremities. Neurologic: No changes. ASSESSMENT: 1. Hypokalemia. Will replace. 2. Methicillin-resistant Staphylococcus aureus pneumonia. Continue vancomycin for a total 4 weeks, till November 17. 3. Anemia of chronic disease. 4. Moderate protein calorie malnutrition. Continue to encourage p.o. 5. Chronic drug abuse. The patient certainly is at an extremely high risk of going home with a PICC line. She needs to be on IV vancomycin for 4 total weeks. We will continue to keep her in the hospital until which time her insurance allows her to transition to LTAC. Otherwise, patient will have to come to the hospital each day for 4 weeks to get medications. She is very unlikely to comply with this.
[2016-10-21] MEDS ORDERED: NS 500 ML ONE ×2 (08:35→12:07)
[2016-10-21 09:11] LABS: ALBUMIN 2.5 g/dL (3.5-5.0); BUN 8 mg/dL (8-22); CALCIUM 8.4 mg/dL (8.8-10.2); GOT 16 U/L (10-30); GPT 10 U/L (10-36); MAGNESIUM 1.9 mg/dL (1.5-2.7); TCO2 22 mmol/L (25-35); TOTAL PROTEIN 6.5 g/dL (6.3-8.3)
[2016-10-21 09:28] LABS: INR 1.05 (0.86-1.15)
[2016-10-21 09:52] LABS: HEMOGLOBIN 9.7 g/dL (12.0-16.0); MCH 26.9 PG (27-31); MCHC 32.3 g/dL (33-37); MCV 83.1 FL (81-99); MPV 9.5 FL (7.4-10.4); RBC 3.61 XMIL (4.2-5.4)
[2016-10-21 10:07] LABS: POTASSIUM 3.3 mmol/L (3.5-5.1); SODIUM 139 mmol/L (136-145)
[2016-10-21 10:08] LABS: ALKALINE PHOSPHATASE 56 U/L (32-104); CHLORIDE 105 mmol/L (98-107)
[2016-10-21] MEDS: MUCINEX PO SCH ×2 (11:57→21:26)
[2016-10-21] MEDS: KEPPRA PO SCH ×2 (11:57→21:26)
[2016-10-21] MEDS: KLOR-CON PO SCH (11:57)
[2016-10-21] MEDS: CULTURELLE PO SCH ×2 (11:57→21:24)
[2016-10-21] MEDS: NS 1,000 ML IV SCH (11:59)
[2016-10-21] MEDS: CALTRATE 600 PO SCH ×2 (11:59→21:24)
[2016-10-21] MEDS ORDERED: NORCO-7.5 PO ONE (12:00)
[2016-10-21] MEDS ORDERED: KLONOPIN PO ONE (12:00)
--- NOTE | 2016-10-21 14:28 | Diag Imaging Result Document ---
PROCEDURE NAME: CHEST-PORTABLE - 10/21/2016 SINGLE FRONTAL RADIOGRAPH OF THE CHEST: COMPARISON: 10/12/2016. FINDINGS: There is a newly placed right PICC line. The tip projects over the lower SVC a couple centimeters superior to the atriocaval junction in the expected position. There is a dense right lower lobe consolidation that is similar to the previous study. No new consolidation is identified. Cardiac silhouette is stable. IMPRESSION: Interval placement of right PICC line in the expected position as described. Chest is essentially stable, otherwise. [facility]
[2016-10-21] MEDS: VANCOMYCIN 1,600 MG in NS 250 ML IV SCH (14:51)
[2016-10-21] MEDS: DESYREL PO PRN (21:24)
[2016-10-21] MEDS: SEROQUEL PO SCH (21:26)
[2016-10-22] MEDS: DUONEB (A & A) INH SCH ×7 (00:41→23:07)
[2016-10-22] MEDS: NORCO-7.5 PO PRN ×4 (00:49→19:37)
[2016-10-22] MEDS: KLONOPIN PO PRN ×4 (00:49→19:37)
--- NOTE | 2016-10-22 08:44 | PROGRESS NOTE ---
DATE: 10/22/2016 SUBJECTIVE: Patient without any complaints today. She is awake, alert. She states that she is breathing fine. OBJECTIVE: Vital signs: Temperature 97.4 degrees, pulse 54, respiratory 18, BP 145/83, saturating 100% on room air. General: Patient is well developed, well nourished. She is currently in no real respiratory distress. She is awake, alert, oriented. Neck: Supple. CV: Regular rate. Chest: Relatively clear. Abdomen: Soft. Extremities: Moves all extremities labs. LABS: No new labs today. ASSESSMENT: 1. Hypokalemia continue to replace. 2. Hypocalcemia. Continue to replace. 3. Moderate protein calorie malnutrition is improving. 4. New onset hepatitis C. Again, discussed with the patient that she will need to follow up outpatient with GI after her pneumonia has improved so she can hopefully be treated for her hepatitis C. 5. Methicillin-resistant Staphylococcus aureus pneumonia. Continue vancomycin until November 17. 6. Chronic drug abuse. The patient unfortunately cannot be discharged home with an indwelling IV as she has admitted in the past that she would use this for IV drug abuse. PLAN: Will continue patient in the hospital. Hopefully she can transfer to LTAC if her insurance approves. Will continue IV antibiotics. Discussed with her the treatment for her pneumonia as well as her hepatitis C.
[2016-10-22] MEDS: VANCOMYCIN 1,600 MG in NS 250 ML IV SCH (08:50)
[2016-10-22] MEDS: CALTRATE 600 PO SCH ×2 (08:50→21:09)
[2016-10-22] MEDS: MUCINEX PO SCH ×2 (08:50→21:09)
[2016-10-22] MEDS: KLOR-CON PO SCH (08:50)
[2016-10-22] MEDS: KEPPRA PO SCH ×2 (08:50→21:09)
[2016-10-22] MEDS: CULTURELLE PO SCH ×2 (08:51→21:09)
[2016-10-22] MEDS: NS 1,000 ML IV SCH (17:28)
[2016-10-22] MEDS: SEROQUEL PO SCH (21:08)
[2016-10-22] MEDS: DESYREL PO PRN (21:08)
[2016-10-23] MEDS: KLONOPIN PO PRN ×2 (02:35→08:28)
[2016-10-23] MEDS: VANCOMYCIN 1,600 MG in NS 250 ML IV SCH ×2 (02:35→20:23)
[2016-10-23] MEDS: NORCO-7.5 PO PRN ×2 (02:35→08:28)
[2016-10-23] MEDS: DUONEB (A & A) INH SCH ×5 (03:24→20:46)
[2016-10-23] MEDS: KEPPRA PO SCH ×2 (08:27→20:23)
[2016-10-23] MEDS: CULTURELLE PO SCH ×2 (08:28→20:23)
[2016-10-23] MEDS: KLOR-CON PO SCH (08:28)
[2016-10-23] MEDS: MUCINEX PO SCH ×2 (08:29→20:23)
[2016-10-23] MEDS: CALTRATE 600 PO SCH ×2 (08:29→20:23)
[2016-10-23] MEDS: NS 1,000 ML IV SCH ×2 (08:33→17:31)
--- NOTE | 2016-10-23 08:43 | PROGRESS NOTE ---
DATE: 10/23/2016 SUBJECTIVE: No complaints. OBJECTIVE/PHYSICAL EXAMINATION: Vital signs: Temp 97, pulse 68, respiratory rate 10, BP 117/81. General: The patient is awake and alert. She is in no distress. She is lying in bed, pleasant to talk with. HEENT: Normocephalic. Neck: Supple. CV: Regular rate. Chest: Relatively clear. ASSESSMENT: 1. Methicillin-resistant Staphylococcus aureus pneumonia. 2. Anemia of chronic disease. 3. Hypokalemia. 4. Moderate protein calorie malnutrition. PLAN: Will continue patient on IV vancomycin over the weekend. Will ask Dr. Leal if Zyvox would be an acceptable option, as patient is at high risk of IV drug use if she goes home with an IV. Will continue to follow.
[2016-10-23 17:17] LABS: UR AMPHETAMINES QUAL NONE DETECTED (NONE DETECT); UR BARBITUATES QUAL NONE DETECTED (NONE DETECT); UR BENZODIAZEPIN QUAL PRESUMPTIVE POSITIVE (NONE DETECT); UR CANNABINOIDS QUAL NONE DETECTED (NONE DETECT); UR COCAINE QUAL NONE DETECTED (NONE DETECT); UR MDMA QUAL NONE DETECTED (NONE DETECT); UR METHADONE QUAL NONE DETECTED (NONE DETECT); UR METHAMPHETAMINE QUAL NONE DETECTED (NONE DETECT); UR OPIATES QUAL PRESUMPTIVE POSITIVE (NONE DETECT); UR OXYCODONE QUAL PRESUMPTIVE POSITIVE (NONE DETECT); UR PCP QUAL NONE DETECTED (NONE DETECT); UR TCA QUAL NONE DETECTED (NONE DETECT)
[2016-10-23] MEDS: SEROQUEL PO SCH (20:23)
[2016-10-24] MEDS: DUONEB (A & A) INH SCH ×3 (00:03→08:27)
[2016-10-24] MEDS: NORCO-7.5 PO PRN ×2 (02:42→08:52)
[2016-10-24] MEDS: KLONOPIN PO PRN ×2 (02:43→08:54)
[2016-10-24 08:29] VITALS: BP 115/75
[2016-10-24] MEDS: KEPPRA PO SCH (08:51)
[2016-10-24] MEDS: KLOR-CON PO SCH (08:51)
[2016-10-24] MEDS: CALTRATE 600 PO SCH (08:52)
[2016-10-24] MEDS: MUCINEX PO SCH (08:52)
[2016-10-24] MEDS: CULTURELLE PO SCH (08:52)
[2016-10-24] MEDS ORDERED: SEPTRA DS PO SCH (11:45)
--- NOTE | 2016-10-25 06:53 | DISCHARGE SUMMARY ---
ADMISSION DATE: 10/12/2016 DISCHARGE DATE: 10/24/2016 DISCHARGE DIAGNOSES: 1. Methicillin-resistant Staphylococcus aureus, highly sensitive to Bactrim and vancomycin. She has been on vancomycin for 7 days. 2. Hypokalemia, resolved. 3. Moderate protein calorie malnutrition. 4. Chronic and acute drug abuse. Patient unfortunately decided to have friends come and visit her in the hospital yesterday for which she took their OxyContin and Xanax. 5. Right lower lobe pneumonia secondary to methicillin-resistant Staphylococcus aureus, stable. 6. Sepsis from methicillin-resistant Staphylococcus aureus, resolved. CONSULTATIONS: None. PROCEDURES: None. HOSPITAL COURSE: Patient is a 26-year-old female. Dr. Leal was consulted and saw her initially. Placed her on IV vancomycin. It was initially felt that she needed to be on vancomycin for 4 weeks. Thankfully, culture returned and showed that she was highly sensitive to Bactrim. Therefore, she will be transitioned over to p.o. Bactrim and discharged home. DISPOSITION: The patient will be discharged home with Bactrim p.o. x14 days. She will follow up with Dr. Leal, Infectious Disease, or primary of her choice. Again, discussed with patient the perils of drug abuse and drug use (i.e., prison ). The patient will follow up with primary care of her choice. No prescriptions were written on discharge other than Bactrim.
== END 2016-10-24 14:19 | disposition home or self-care (01) | DRG 871 ==
LOC: P.ED 19:18 → P.MEDSURG 19:19
PROVIDERS: ATTEND Family Medicine
PROC: 02HV33Z Insertion of Infusion Device into Superior Vena Cava, Percutaneous Approach (ICD-10-PCS; principal; 2016-10-21)
DX: A41.02 Sepsis due to Methicillin resistant Staphylococcus aureus (principal); J15.212 Pneumonia due to Methicillin resistant Staphylococcus aureus; E44.0 Moderate protein-calorie malnutrition; E87.1 Hypo-osmolality and hyponatremia; E86.0 Dehydration; F31.9 Bipolar disorder, unspecified; F41.9 Anxiety disorder, unspecified; F17.210 Nicotine dependence, cigarettes, uncomplicated; G40.909 Epilepsy, unspecified, not intractable, without status epilepticus; Z79.899 Other long term (current) drug therapy; E87.6 Hypokalemia; E83.51 Hypocalcemia; B19.20 Unspecified viral hepatitis C without hepatic coma; F12.10 Cannabis abuse, uncomplicated; F11.10 Opioid abuse, uncomplicated; D63.8 Anemia in other chronic diseases classified elsewhere; G47.00 Insomnia, unspecified; R19.7 Diarrhea, unspecified; Z91.128 Patient's intentional underdosing of medication regimen for other reason; Z83.3 Family history of diabetes mellitus; Z82.49 Family history of ischemic heart disease and other diseases of the circulatory system; Z82.3 Family history of stroke
CPT/HCPCS: 36415; 36569; 71010; 71020; 71260; 80048; 80053; 80074; 80202; 80305; 81025; 82948; 83735; 83935; 84300; 84443; 85025; 85027; 85610; 86480; 86701; 87040; 87070; 87077; 87186; 87205; 87324; 87522; 87804; 87899; 93306; 94640; 94667; 94668; 94761; 96365; J0696; J1650; J2405; J2543; J3370; J3480; J7030; J7040; J7050; Q9967